=== PATIENT | male | born 1975 | race Caucasian/White ===

== ENCOUNTER 2016-08-30 18:08 | Emergency (ER) | payer SELFPAY ==
[~2016-08-30] VITALS: Ht 180.3 cm; Wt 103.0 kg
[2016-08-30 18:21] VITALS: BP 142/90; PULSE 90; RESP 18; TEMP 98.8; O2SAT 98
[2016-08-30 19:41] LABS: AUTOMATED NEUTROPHIL # 8.2 TH/MM3 (1.8-7.7); BASOPHIL # 0.3 TH/MM3 (0-0.2); BASOPHIL % 2.6 % (0.0-2.0); EOSINOPHIL # 0.3 TH/MM3 (0-0.4); EOSINOPHIL % 2.5 % (0.0-4.0); HEMATOCRIT 49.6 % (39.0-51.0); LYMPHOCYTE # 2.8 TH/MM3 (1.0-4.8); MEAN CELL VOLUME 94.5 FL (80.0-100.0); MEAN CORPUSCULAR HEMOGLOBIN 31.6 PG (27.0-34.0); MEAN CORPUSCULAR HGB CONC 33.5 % (32.0-36.0); MONO % 5.6 % (0.0-8.0); NEUT % 66.3 % (16.0-70.0); PLATELET COUNT 300 TH/MM3 (150-450); RED BLOOD COUNT 5.25 MIL/MM3 (4.50-5.90); RED CELL DISTRIBUTION WIDTH 12.3 % (11.6-17.2); WHITE BLOOD COUNT 12.3 TH/MM3 (4.0-11.0)
[2016-08-30 19:45] LABS: HEMO FLAGS DIFF FINAL
[2016-08-30 19:50] LABS: CHLORIDE 108 MEQ/L (98-107); POTASSIUM 3.9 MEQ/L (3.5-5.1); SODIUM (NA) 142 MEQ/L (136-145)
[2016-08-30 19:52] LABS: BLOOD, URINE TRACE (NEG); GLUCOSE,URINE NEG (NEG); KETONE, URINE TRACE mg/dL (NEG); NITRITE,URINE NEG (NEG); PH, URINE 6.5 (5.0-8.5)
[2016-08-30 19:53] LABS: ANION GAP 8 MEQ/L (5-15); BICARBONATE 25.7 MEQ/L (21.0-32.0)
[2016-08-30 19:54] LABS: BLOOD UREA NITROGEN 16 MG/DL (7-18)
[2016-08-30 19:57] LABS: GLOMERULAR FILTRATION RATE 98 ML/MIN (>89)
[2016-08-30 20:00] LABS: CREATINE KINASE 247 U/L (39-308)
[2016-08-30 20:13] LABS: CKMB 0.7 NG/ML (0.5-3.6)
[2016-08-30 20:17] LABS: METHOD OF COLLECTION VOIDED; URINE COLOR YELLOW (YELLW/STRAW)
[2016-08-30 20:18] LABS: COMMENT (UR) CULT NOT INDICATED; CULTURE IF INDICATED CULT NOT INDICATED; MUCUS URINE FEW /lpf (OCC); SQUAMOUS EPITHELIAL CELL URINE 0-2 /hpf (0-5)
--- NOTE | 2016-08-30 20:30 | RADHPO ---
EXAM DATE/TIME: 08/30/2016 20:04 [facility] COMPARISON: No previous studies available for comparison. INDICATIONS : Chest pain since last night. MEDICAL HISTORY : None. SURGICAL HISTORY : None. ENCOUNTER: Initial ACUITY: 2 days PAIN SCORE: 5/10 LOCATION: Bilateral chest FINDINGS: A single view of the chest demonstrates the lungs to be symmetrically aerated without evidence of mas s, infiltrate or effusion. The cardiomediastinal contours are unremarkable. Osseous structures are intact. CONCLUSION: No acute disease. Bro Perez MD on August 30, 2016 at 20:28 Board Certified Radiologist. This report was verified electronically.
--- NOTE | 2016-08-30 20:44 | PD ---
HPI Chief Complaint: Chest Pain Time Seen by Provider: 20:31 Travel History International Travel<30 days: No Contact w/Intl Traveler<30days: No Traveled to known affect area: No History of Present Illness HPI The patient is a 40-year-old male that complains of right upper quadrant pain for one week and lower chest pain about 24 hours. He denies any nausea or vomiting. The patient has been here before for noncardiac chest pain. He denies any history of heart disease. He does not have a doctor and he does not have insurance. He states his last drink of alcohol was Monday. He does smoke one pack a day. [facility] Past Medical History Diminished Hearing: No Gastrointestinal Disorders: Yes Ulcer: Yes (STOMACH/COLON) Social History Alcohol Use: Yes (WEEKENDS) Tobacco Use: Yes (1 PPD) Substance Use: No Allergies-Medications (Allergen,Severity, Reaction): Coded Allergies: No Known Allergies (Verified , 08/30/16) Reported Meds & Prescriptions Reported Meds & Active Scripts Active Review of Systems Except as stated in HPI: all other systems reviewed are Neg Physical Exam Narrative GENERAL: The patient is alert, oriented 3 and slight apparent distress with his right flank pain. His vital signs show blood pressure 142/90 but otherwise normal. SKIN: Warm and dry. No skin rash is present. HEAD: Atraumatic. Normocephalic. EYES: Pupils equal and round. No scleral icterus. No injection or drainage. ENT: No nasal bleeding or discharge. Mucous membranes pink and moist. NECK: Trachea midline. No JVD. CARDIOVASCULAR: Regular rate and rhythm. No murmur appreciated. RESPIRATORY: No accessory muscle use. Clear to auscultation. Breath sounds equal bilaterally. GASTROINTESTINAL: Abdomen soft, with tenderness to direct palpation in the right upper quadrant, nondistended. No guarding or rebound is present. Hepatic margin appears about 3 cm below the right costal margin. MUSCULOSKELETAL: No obvious deformities. No clubbing. No cyanosis. No edema. NEUROLOGICAL: Awake and alert. No obvious cranial nerve deficits. Motor grossly within normal limits. Normal speech. PSYCHIATRIC: Appropriate mood and affect; insight and judgment normal. Data Data Last Documented VS Vital Signs Date Time Temp Pulse Resp B/P Pulse Ox O2 Delivery O2 Flow Rate FiO2 08/30/16 18:21 98.8 90 18 142/90 98 Orders Urinalysis - C+S If Indicated (08/30/16 19:15) Electrocardiogram (08/30/16 19:22) Complete Blood Count With Diff (08/30/16 19:22) Basic Metabolic Panel (Bmp) (08/30/16 19:22) Ckmb (Isoenzyme) Profile (08/30/16 19:22) Troponin I (08/30/16 19:22) Chest, Single Ap (08/30/16 19:22) Iv Access Insert/Monitor (08/30/16 19:22) Ecg Monitoring (08/30/16 19:22) Oxygen Administration (08/30/16 19:22) Oximetry (08/30/16 19:22) CKMB (08/30/16 19:32) CKMB% (08/30/16 19:32) Ct Abd/Pel W Iv Contrast(Rout) (08/30/16 20:44) Iohexol 350 Inj (Omnipaque 350 Inj) (08/30/16 21:13) Labs Laboratory Tests Test 08/30/16 08/30/16 19:32 19:45 White Blood Count 12.3 TH/MM3 Red Blood Count 5.25 MIL/MM3 Hemoglobin 16.6 GM/DL Hematocrit 49.6 % Mean Corpuscular Volume 94.5 FL Mean Corpuscular Hemoglobin 31.6 PG Mean Corpuscular Hemoglobin 33.5 % Concent Red Cell Distribution Width 12.3 % Platelet Count 300 TH/MM3 Mean Platelet Volume 7.4 FL Neutrophils (%) (Auto) 66.3 % Lymphocytes (%) (Auto) 23.0 % Monocytes (%) (Auto) 5.6 % Eosinophils (%) (Auto) 2.5 % Basophils (%) (Auto) 2.6 % Neutrophils # (Auto) 8.2 TH/MM3 Lymphocytes # (Auto) 2.8 TH/MM3 Monocytes # (Auto) 0.7 TH/MM3 Eosinophils # (Auto) 0.3 TH/MM3 Basophils # (Auto) 0.3 TH/MM3 CBC Comment DIFF FINAL Differential Comment Sodium Level 142 MEQ/L Potassium Level 3.9 MEQ/L Chloride Level 108 MEQ/L Carbon Dioxide Level 25.7 MEQ/L Anion Gap 8 MEQ/L Blood Urea Nitrogen 16 MG/DL Creatinine 0.86 MG/DL Estimat Glomerular Filtration 98 ML/MIN Rate Random Glucose 104 MG/DL Calcium Level 8.3 MG/DL Total Creatine Kinase 247 U/L Creatine Kinase MB 0.7 NG/ML Troponin I LESS THAN 0.02 NG/ML Urine Collection Type VOIDED Urine Color YELLOW Urine Turbidity CLEAR Urine pH 6.5 Urine Specific [place] 1.027 Urine Protein NEG mg/dL Urine Glucose (UA) NEG mg/dL Urine Ketones TRACE mg/dL Urine Occult Blood TRACE Urine Nitrite NEG Urine Bilirubin NEG Urine Leukocyte Esterase NEG Urine RBC 4-9 /hpf Urine Squamous Epithelial 0-2 /hpf Cells Urine Amorphous Sediment FEW Urine Mucus FEW /lpf Microscopic Urinalysis Comment CULT NOT INDICATED MDM Medical Decision Making Medical Screen Exam Complete: Yes Emergency Medical Condition: Yes Medical Record Reviewed: Yes Interpretation(s) The CT abdomen/pelvis with IV contrast shows no acute abnormality. There is a 1.5 cm hyperdensity seen in the left lobe of liver which is likely a cyst or hemangioma. The chest x-ray shows no acute disease. The urine shows trace ketones, trace blood with 4-9 red cells but is otherwise normal and culture is not indicated. The basic metabolic profile shows a calcium of 8.3 but is otherwise normal. The cardiac enzymes are normal. The CBC is normal except for minimal elevation of the white count at 12,300. The EKG is normal with normal sinus rhythm rate of 80. Differential Diagnosis Ureteral stone, cholecystitis, cholelithiasis with colic, colitis, urinary tract infection, renal tumor, hepatic tumor/mass, acute coronary syndrome highly unlikely, pneumothorax, chest wall pain, chest pain etiology undetermined , abdominal pain etiology undetermined Narrative Course The patient has abdominal/chest pain etiology undetermined. We could find no evidence of acute coronary syndrome or heart related problems. He did not have a urinary stone and there is no evidence for choledocholithiasis. No renal/ hepatic tumors were noted. Impression: Abdominal pain unknown etiology Plan: The patient to follow up with primary care physician. He is given Motrin 800 mg 3 times daily. Diagnosis Primary Impression: Abdominal pain of unknown etiology Additional Impression: Chest wall pain Additional Instructions: As we discussed, follow-up with a primary care physician about this pain. We should try an anti-inflammatory such as Motrin 800 mg taken regularly 3 times daily. Med/Other Pt SpecificInfo: Prescription(s) given Scripts Ibuprofen 800 Mg [id number] Mg PO TID #40 TAB Ref 0 Prov:Jayson Reese MD 08/30/16 Disposition: 01 DISCHARGE HOME Condition: Stable Jayson Reese MD Aug 30, 2016 20:44
[2016-08-30] MEDS ORDERED: IOHEXOL 350 MG/ML 10 ML VIAL (for RAD DIAG) IV ONE (21:13)
--- NOTE | 2016-08-30 21:33 | RADHPO ---
EXAM DATE/TIME: 08/30/2016 20:57 [facility] COMPARISON: No previous studies available for comparison. INDICATIONS : Right upper quadrant pain. IV CONTRAST: 75 cc Omnipaque 350 (iohexol) IV ORAL CONTRAST: No oral contrast ingested. RADIATION DOSE: 21.07 CTDIvol (mGy) MEDICAL HISTORY : None SURGICAL HISTORY : None. ENCOUNTER: Initial ACUITY: 1 day PAIN SCALE: 7/10 LOCATION: Right upper quadrant TECHNIQUE: Volumetric scanning of the abdomen and pelvis was performed. Using automated exposure control and adjustment of the mA and/or kV according to patient size, radiation dose was kept as low as reasonably achievable to obtain optimal diagnostic quality images. FINDINGS: There is a 1.5 cm hyperdense area seen in the medial segment of the left lobe of the li davey. This is nonspecific. It likely represents a cyst or hemangioma. The liver is otherwise clear. The gallbladder is decompressed. The spleen, pancreas, adrenal glands and kidneys appear normal. T he bowel appears normal. The appendix is normal. The pelvic structures appear grossly intact. The lung bases are clear. The bony structures are grossly intact. CONCLUSION: 1. No acute abnormality is seen. 2. 1.5 cm hyperdensity seen in the left lobe of the liver likely representing a cyst or hemangioma. Bro Perez MD on August 30, 2016 at 21:19 Board Certified Radiologist. This report was verified electronically.
[2016-08-30] MEDS ORDERED: IBUP800T23 PO (22:07)
[2016-08-30] MEDS ORDERED: KETOROLAC TROMETHAMINE 60 MG/2 ML (IM) VIAL IM ONE (22:15)
--- NOTE | 2016-08-31 22:58 | EKG ---
Date Performed: 08/30/2016 Time Performed: 19:25:32 PTAGE: 40 years EKG: Sinus rhythm Normal ECG PREVIOUS TRACING : 12/25/2014 15.38 DOCTOR: Giovanni Zhao Interpretating Date/Time 08/31/2016 22:55:08
== END 2016-08-30 22:40 | disposition home or self-care (01) ==
LOC: PHED 18:08 → PHEFT 22:40
DX: R10.9 Unspecified abdominal pain (principal); R07.89 Other chest pain; F17.210 Nicotine dependence, cigarettes, uncomplicated
CPT/HCPCS: 71010; 74177; 80048; 81001; 82550; 82552; 84484; 85025; 93005; 99284; Q9967

== ENCOUNTER 2017-08-17 03:22 | Emergency (ER) | payer SELFPAY ==
[~2017-08-17] VITALS: Ht 180.3 cm; Wt 103.8 kg
[~2017-08-17 03:22] MED LIST: IBUP1TAB7 PO
[2017-08-17 03:28] VITALS: BP 126/79; PULSE 85; RESP 18; TEMP 97.4; O2SAT 98
[2017-08-17] MEDS ORDERED: LIDOCAINE 1%/EPINEPHrine 1:100,000 SOLN 20 ML VIAL INFIL ONE (04:00)
[2017-08-17] MEDS ORDERED: CIPR-9 PO (04:14)
--- NOTE | 2017-08-17 04:15 | PD ---
HPI Chief Complaint: Skin Problem Time Seen by Provider: 03:47 Travel History International Travel<30 days: No Contact w/Intl Traveler<30days: No Traveled to known affect area: No History of Present Illness HPI The patient is a 41-year-old male that noticed a lump becoming progressively larger and more painful in the last 4 days located in his left medial thigh, just below the inguinal ligament. The patient denies any fever. He saw another physician about this and this physician prescribed Cipro. He did not drain the area. His last tetanus shot was 10 years ago but he does not want a shot in [employer] [facility] Past Medical History Diminished Hearing: No Gastrointestinal Disorders: Yes Ulcer: Yes (STOMACH/COLON) Social History Alcohol Use: Yes (WEEKENDS) Tobacco Use: Yes (1 PPD) Substance Use: No Allergies-Medications (Allergen,Severity, Reaction): Coded Allergies: No Known Allergies (Verified , 08/30/16) Reported Meds & Prescriptions Reported Meds & Active Scripts Active Ibuprofen 800 Mg Tab 800 Mg PO TID Review of Systems Except as stated in HPI: all other systems reviewed are Neg Physical Exam Narrative GENERAL: The patient is alert, oriented 3 in moderate distress with his left thigh abscess. His vital signs are normal. SKIN: Focused skin assessment warm/dry. HEAD: Atraumatic. Normocephalic. EYES: Pupils equal and round. No scleral icterus. No injection or drainage. ENT: No nasal bleeding or discharge. Mucous membranes pink and moist. NECK: Trachea midline. No JVD. CARDIOVASCULAR: Regular rate and rhythm. No murmur appreciated. RESPIRATORY: No accessory muscle use. Clear to auscultation. Breath sounds equal bilaterally. GASTROINTESTINAL: Abdomen soft, non-tender, nondistended. Hepatic and splenic margins not palpable. MUSCULOSKELETAL: No obvious deformities. No clubbing. No cyanosis. No edema. NEUROLOGICAL: Awake and alert. No obvious cranial nerve deficits. Motor grossly within normal limits. Normal speech. PSYCHIATRIC: Appropriate mood and affect; insight and judgment normal. Data Data Last Documented VS Vital Signs Date Time Temp Pulse Resp B/P (MAP) Pulse Ox O2 Delivery O2 Flow Rate FiO2 08/17/17 03:28 97.4 85 18 126/79 (95) 98 Orders Orders Lidocai-Epi 1%-1:100,000 Inj (Xylocaine- (08/17/17 04:00) [facility] Medical Decision Making Medical Screen Exam Complete: Yes Emergency Medical Condition: Yes Medical Record Reviewed: Yes Differential Diagnosis Abscess, cellulitis, lymph node Narrative Course The patient had an abscess in his left inner thigh. Incision and drainage produced a surprisingly large amount of pus. The patient felt much better after this was drained. Procedures Procedure Narrative Following a Betadine prep and, under sterile technique, a field block was done on the abscess. The abscess was opened with a 1 cm incision by a #11 blade. A large amount of pus was recovered. The cavity was cleaned and loculations broken up using peroxide moistened Q-tips. The patient tolerated the procedure well. Diagnosis Primary Impression: Abscess of left thigh Additional Impression: Encounter for incision and drainage procedure Additional Instructions: We gave you a bottle of peroxide and some Q-tips. For about 3 or 4 days you should insert a peroxide moistened Q-tip into the cavity twice daily. After these 3 or 4 days due to it only once daily. After about a week to 10 days the abscess should be clean and the incision open and should heal up fairly well. If you have any problems, return to the emergency department and we will glad to see you for these. Continue to take the Cipro as prescribed by the other physician. Med/Other Pt SpecificInfo: No Change to Meds Disposition: 01 DISCHARGE HOME Condition: Stable Jayson Reese MD Aug 17, 2017 04:15
== END 2017-08-17 04:31 | disposition home or self-care (01) ==
LOC: PHED 03:22
DX: L02.416 Cutaneous abscess of left lower limb (principal); B96.89 Other specified bacterial agents as the cause of diseases classified elsewhere
CPT/HCPCS: 10060; 87070; 87185; 87205